=== PATIENT | male | born 1975 | race Caucasian/White ===

== ENCOUNTER 2018-06-22 09:51 | Emergency (ER) | payer MEDICAID ==
[2018-06-22] MEDS: KETOROLAC 30 MG INJ IM (10:53)
[2018-06-22 12:16] LABS: URINE BLOOD (Dip) POC Negative (NEGATIVE); URINE GLUCOSE (Dip) POC Negative (NEGATIVE); URINE KETONES (Dip) POC Negative (NEGATIVE); URINE LEUKOCYTE EST (Dip) POC Negative (NEGATIVE); URINE NITRITE (Dip) POC Negative (NEGATIVE); URINE TOTAL PROTEIN POC Trace (NEGATIVE)
== END 2018-06-22 12:46 | disposition home or self-care (01) ==
LOC: FTE 09:51
DX: M54.5 Low back pain (principal)
CPT/HCPCS: 72100; 81003; 96372; 99284-25

== ENCOUNTER 2018-08-18 12:25 | Emergency (ER) | payer MEDICAID ==
[2018-08-18] MEDS: IBUPROFEN 800 MG TAB PO (13:11)
[2018-08-18] MEDS: DIPHTH/TET/ACEL PERTUSS (ADULT) 0.5 ML VIAL IM* (13:57)
[2018-08-18] MEDS: LIDOCAINE 1% (MDV) 20 ML INJ SC (14:38)
[2018-08-18] MEDS: SOD CHLORIDE 0.9% 1,000 ML IV (15:00)
[2018-08-18] MEDS: ONDANSETRON (ODT) 4 MG TAB ODT (15:28)
[2018-08-18] MEDS: HYDROCODONE/APAP (5/325) TAB PO (15:28)
== END 2018-08-18 16:22 | disposition home or self-care (01) ==
LOC: FTE 12:25
DX: S61.211A Laceration without foreign body of left index finger without damage to nail, initial encounter (principal); W26.8XXA Contact with other sharp object(s), not elsewhere classified, initial encounter; Y92.9 Unspecified place or not applicable; Z23 Encounter for immunization
CPT/HCPCS: 12001; 90471; 90715; 99284-25

== ENCOUNTER 2018-08-21 07:57 | Emergency (ER) | payer MEDICAID | END 2018-08-21 08:45 | disposition home or self-care (01) | LOC: FTE 07:57 | DX: Z48.01 Encounter for change or removal of surgical wound dressing (principal) | CPT/HCPCS: 99281; Z7502 ==

== ENCOUNTER 2018-08-28 08:22 | Emergency (ER) | payer MEDICAID | END 2018-08-28 09:20 | disposition home or self-care (01) | LOC: FTE 08:22 | DX: Z48.02 Encounter for removal of sutures (principal) | CPT/HCPCS: 99281; Z7502 ==